=== PATIENT | male | born 1940 | race Caucasian/White ===

== ENCOUNTER 2016-09-20 01:12 | Inpatient (IN) | payer OTHER ==
[~2016-09-20] VITALS: Ht 193 cm; Wt 123.5 kg
[2016-09-20] MEDS ORDERED: SODIUM CHLORIDE FLUSH 10ML SYR IVF ONE (02:00)
[2016-09-20] MEDS ORDERED: SODIUM CHLORIDE 0.9% 1,000ML IVBOLUS ONE (02:00)
[2016-09-20 02:14] LABS: HEMOGLOBIN 14.2 g/dL (13.7-18.0)
[2016-09-20 02:18] LABS: ASPARTATE AMINO TRANSFERASE 21 U/L (15-37); BLOOD UREA NITROGEN 18 mg/dL (7-18)
[2016-09-20] MEDS ORDERED: NS + 20MEQ KCL 1,000 ML IV SCH (03:57)
[2016-09-20] MEDS ORDERED: RAMI10CA PO (03:58)
[2016-09-20] MEDS ORDERED: ASPI325T80 PO (03:58)
[2016-09-20] MEDS ORDERED: BALS750C14 PO (03:58)
[2016-09-20] MEDS ORDERED: METO25TA35 PO (03:58)
[2016-09-20] MEDS ORDERED: ATOR40TA PO (03:58)
[2016-09-20] MEDS ORDERED: POLYETHYLENE GLYCOL 17 GM PACKET PO PRN (04:00)
[2016-09-20] MEDS ORDERED: ACETAMINOPHEN 325 MG TABLET PO PRN (04:00)
[2016-09-20] MEDS ORDERED: ONDANSETRON 2MG/ML, 2ML IVP PRN (04:00)
[2016-09-20] MEDS ORDERED: DOCUSATE 100 MG CAPSULE PO PRN (04:00)
[2016-09-20] MEDS ORDERED: HYDROcodone/APAP 5/325 TABLET PO PRN (04:00)
[2016-09-20] MEDS ORDERED: MORPHINE SULFATE 4 MG/ML, 1ML IVPush PRN (04:00)
[2016-09-20] MEDS ORDERED: SULF500T36 PO (04:03)
[2016-09-20] MEDS ORDERED: ASPI-496 PO (04:03)
[2016-09-20] MEDS ORDERED: OMEG1CAP12 PO (04:03)
[2016-09-20 04:23] VITALS: BP 131/77
[2016-09-20 04:57] VITALS: BP 131/77
[2016-09-20] MEDS: SULFASALAZINE PO SCH (09:00)
[2016-09-20] MEDS: BALSALAZIDE DISODIUM PO SCH ×3 (09:00→20:02)
[2016-09-20 09:06] VITALS: BP 165/97
[2016-09-20] MEDS: RAMIPRIL 2.5 MG CAPSULE PO SCH (09:16)
[2016-09-20] MEDS: METOPROLOL TARTRATE 25 MG TABLET PO SCH ×2 (09:17→20:01)
[2016-09-20 11:48] LABS: HEMOGLOBIN 13.3 g/dL (13.7-18.0)
[2016-09-20 12:28] LABS: OCCBLD OBC PASS
[2016-09-20 12:54] VITALS: BP 141/84
[2016-09-20 15:21] LABS: HEMOGLOBIN 13.3 g/dL (13.7-18.0)
[2016-09-20] MEDS: ATORVASTATIN 40 MG TABLET PO SCH (20:00)
[2016-09-20 20:17] VITALS: BP 130/79
[2016-09-21 03:59] VITALS: BP 136/79
[2016-09-21 05:37] LABS: BLOOD UREA NITROGEN 9 mg/dL (7-18)
[2016-09-21 07:58] VITALS: BP 142/98
[2016-09-21] MEDS: SULFASALAZINE PO SCH (09:00)
[2016-09-21] MEDS: BALSALAZIDE DISODIUM PO SCH ×3 (09:00→20:47)
[2016-09-21] MEDS: RAMIPRIL 2.5 MG CAPSULE PO SCH (09:18)
[2016-09-21] MEDS: METOPROLOL TARTRATE 25 MG TABLET PO SCH ×2 (09:19→20:24)
[2016-09-21 13:32] VITALS: BP 134/77
[2016-09-21 19:11] VITALS: BP 149/67
[2016-09-21] MEDS: ATORVASTATIN 40 MG TABLET PO SCH (20:23)
[2016-09-22 02:14] VITALS: BP 148/91
[2016-09-22 07:10] VITALS: BP 143/79
[2016-09-22] MEDS: METOPROLOL TARTRATE 25 MG TABLET PO SCH (08:52)
[2016-09-22] MEDS: RAMIPRIL 2.5 MG CAPSULE PO SCH (08:53)
[2016-09-22] MEDS: BALSALAZIDE DISODIUM PO SCH (08:56)
[2016-09-22] MEDS: SULFASALAZINE PO SCH (08:57)
[2016-09-22] MEDS ORDERED: PRED10TA PO (09:21)
== END 2016-09-22 10:58 | disposition home or self-care (01) | DRG 385 ==
LOC: ED 01:53 → EDIP 03:24 → 3NE 04:17
PROVIDERS: ADMIT Family Medicine; ATTEND Family Medicine
DX: K51.911 Ulcerative colitis, unspecified with rectal bleeding (principal); K57.91 Diverticulosis of intestine, part unspecified, without perforation or abscess with bleeding; I10 Essential (primary) hypertension; E78.5 Hyperlipidemia, unspecified; Z85.118 Personal history of other malignant neoplasm of bronchus and lung; Z86.74 Personal history of sudden cardiac arrest; Z87.891 Personal history of nicotine dependence; Z79.82 Long term (current) use of aspirin; Z79.899 Other long term (current) drug therapy
CPT/HCPCS: 36415; 74020; 80048; 80053; 82272; 85025; 85651; 86140; 87046; 87324; 87899; 89055; J3480; J7512